=== PATIENT | female | born 1975 | race Caucasian/White ===

== ENCOUNTER 2016-10-18 19:35 | Emergency (ER) | payer OTHER ==
[2016-10-18 21:12] LABS: CALCIUM 8.6 mg/dL (8.5-10.1); CHLORIDE SERUM 104 mmol/L (98-107); CREATININE SERUM 0.6 mg/dL (0.6-1.0); GFR1 > 60 mL/min; GLUCOSE SERUM 100 mg/dL (74-106); POTASSIUM SERUM 3.6 mmol/L (3.5-5.1); SODIUM SERUM 139 mmol/L (136-145)
[2016-10-18 21:14] LABS: BASOPHIL % 0.1 % (0-2)
[2016-10-18 21:17] LABS: PLATELET COUNT 80 x10^3mcL (130-400)
[2016-10-18 21:24] LABS: microscopic required? YES; urine erythrocyte 2+ (NEGATIVE)
[2016-10-18 21:26] LABS: ALKALINE PHOSPHATASE 132 U/L (46-116); ALT/SGPT 33 U/L (14-59); AST/SGOT 31 U/L (15-37); BILIRUBIN TOTAL 1.58 mg/dL (0.20-1.00); LIPASE 65 IU/L (73-393); TOTAL PROTEIN, SERUM 6.9 g/dL (6.4-8.2); rbc morphology (normal/abnorm) ABNORMAL (NORMAL)
[2016-10-18 21:27] LABS: ALBUMIN 3.3 g/dL (3.4-5.0)
[2016-10-19 01:32] VITALS: BP 106/59
== END 2016-10-19 01:32 | disposition home or self-care (01) ==
LOC: ED 19:35
PROVIDERS: Emergency Medicine
DX: N28.1 Cyst of kidney, acquired (principal); R51 Headache; Z85.53 Personal history of malignant neoplasm of renal pelvis; Z88.5 Allergy status to narcotic agent
CPT/HCPCS: J7030; Q9967

== ENCOUNTER 2017-07-19 17:19 | Emergency (ER) | payer OTHER ==
[~2017-07-19] VITALS: Ht 160 cm; Wt 58.0 kg
[2017-07-19 18:02] VITALS: Ht 160 cm; Wt 58.0 kg
[2017-07-19 21:35] VITALS: BP 118/70
== END 2017-07-19 21:35 | disposition home or self-care (01) ==
LOC: ED 17:19
DX: B34.9 Viral infection, unspecified (principal); Z88.6 Allergy status to analgesic agent; Z88.5 Allergy status to narcotic agent; Z85.05 Personal history of malignant neoplasm of liver
CPT/HCPCS: 87804